=== PATIENT | female | born 1950 | race Caucasian/White ===

== ENCOUNTER 2017-06-05 06:45 | Day surgery (SDC) | payer MEDICARE, OTHER ==
[~2017-06-05] VITALS: Ht 162.6 cm; Wt 77.1 kg
[~2017-06-05 06:45] MED LIST: ALEVE220 MG PO; ASPIR 8181 MG PO; BETIMOL5 M1 OPTH; CALCIUM 1,0001 EACH PO; CRANBERRY300 MG PO; IBUPROFEN800 MG PO; ICAPS TABLET1 EACH PO; LIDOCAINE HCL100 ML; LIPITOR20 MG PO; LUMIGAN2.5 M1 OPTH; NORCO 5-325 TA1 EACH PO; PREDNISONE20 MG PO; PROVENTIL HFA6.7 GM INH; VITAMIN C500 M4 PO
--- NOTE | 2017-06-05 09:29 | NUR ---
PT WAS ALERT AND ORIENTED. SHE SEEMED PREPARED, WAITING FOR DR TO COME IN. VERY PLEASANT, HAD NO QUESTIONS, PT DECLINED PRAYER AT THIS TIME. WILL FOLLOW NEEDED
--- NOTE | 2017-06-05 12:40 | NUR ---
06/05/17 1240 Luz Holcomb 1231 PT ARRIVED IN PACU WITH ORAL AIRWAY IN PLACE. 1233 ORAL AIRWAY REMOVED. PT SLEEPY WITH NO C/O'S. PIERSON CATHETER PRESENT WITH BRIGHT YELLOW URINE.
--- NOTE | 2017-06-05 13:46 | NUR ---
PT RETURNS TO DEPT QUITE SOMNOLENT. PT ABLE TO RATE PAIN; HOWEVER, WORDS ARE SLURRED AT THIS TIME. WHEN STIMULATED, PT REPORTS "I NEED TO GET UP". PT IS REASSURED W/RN VOICE. ICED WATER IS @ BS. BED RAILS ARE UP X 2. CALL LIGHT W/IN REACH. ATTEMPT MADE TO LOCATE PATIENT'S FAMILY.
--- NOTE | 2017-06-05 14:04 | NUR ---
PHONE CALL TO DAUGHTER TO REPORT HER MOM IS BACK IN DAY SURGERY. DAUGHTER ASKS IF MOTHER IS READY TO GO HOME. PLAN OF CARE RELAYED AND SHE VERBALIZES UNDERSTANDING.
--- NOTE | 2017-06-05 14:10 | NUR ---
PT AWAKE AND INSISTING ON GETTING UP TO GO TO THE BATHROOM. PT REQ CATHETER BE REMOVED.
--- NOTE | 2017-06-05 14:17 | NUR ---
10ML NS DEFLATED OUT OF BALLOON AND PIERSON CATHETER IS REMOVED. 200 ML BRIGHT YELLOW URINE NOTED TO OVERNIGHT PIERSON CATHETER BAG. PATIENT ATTEMPTS TO GET OUT OF BED PREMATURELY ON SEVERAL OCCASIONS. PATIENT FOLLOWS INSTRUCTIONS FROM RN. PT AMBULATES TO THE BATHROOM QUICKLY WITH ASSISTANCE FROM RN. PT REQUESTS TO BE LEFT ALONE IN THE BATHROOM AND IS INSTRUCTED ON HOW TO USE THE CALL LIGHT. SHE VERBALIZES UNDERSTANDING.
--- NOTE | 2017-06-05 14:34 | NUR ---
PT UNABLE TO VOID. SMALL DROPLETS OF BLOOD NOTED TO URINE HAT. MAUREEN PAD AND MESH PANTIES PLACED. PT MOANING AND REPEATING "MY STOMACH HURTS REALLY BAD". PT AMBULATES BACK TO BED W/ASSIST. SCDS IN PLACE. LUCAS HUGGER ON WARM. PRN PULLED FOR PAIN. WHEN UNSTIMULATED, PT FALLS QUICKLY TO SLEEP. WILL CONTINUE TO MONITOR REGARDING PAIN MEDICINE. PT OXYGEN SATURATION REMAINS 98% ON 2L VIA NC. OXYGEN REDUCED TO 1L VIA NC.
--- NOTE | 2017-06-05 14:55 | NUR ---
PT CONTINUES TO WRITHE IN PAIN. PT CONTINUES TO ASK FOR PAIN MEDICINE. CALL TO HAMMERER TO ASSESS PATIENT'S BASELINE ANXIETY. HAMMERER REPORTS PATIENT SEEMED TO BE ANXIOUS PREOP. HAMMERER DOES REPORT BRADYCARDIA UPON ARRIVAL TO OR WELL. WILL CRACKERS GIVEN AND PT TOLERATES THOSE WELL. PRN GIVEN FOR PAIN.
--- NOTE | 2017-06-05 15:22 | NUR ---
PT UP TO BR W/RN ASSIST. PT VOIDS 25 ML BRIGHT YELLOW, URINE AND REPORTS "MY STOMACH HURTS REALLY BAD". PT AMBULATES BACK TO BED AND POSITIONS HERSELF ON HER RIGHT SIDE. CONTINUOUS PULSE OXIMETER CONNECTED AND OXYGEN SATURATION IS 98% ON RA. OXYGEN IS DC @ THIS TIME. LUCAS HUGGER ON WARM. MORE ICED WATER GIVEN. PT RESTS QUIETLY WHEN LEFT UNSTIMULATED.
--- NOTE | 2017-06-05 15:32 | NUR ---
PT WRITHING IN PAIN IN BED. RN @ BS CONTINUOUSLY D/T ALARM OF CONTINUOUS PULSE OXIMETER NOT GETTING A GOOD READING. PT REPORTS "IT'S HOT IN HERE". LUCAS HUGGER TURNED OFF. PRN GIVEN. PULSE IS 50 AND OXYGEN SATURATION IS 97% PT APPEARS TO BE COMFORTABLE. SHE IS RESTING QUIETLY. RR EVEN AND UNLABORED.
--- NOTE | 2017-06-05 15:41 | NUR ---
PT DESATURATES TO 86% ON ROOM AIR WHILE SLEEPING. OXYGEN INCREASED TO 1L VIA NC AND IMMEDIATELY INCREASES TO 91%
--- NOTE | 2017-06-05 16:24 | NUR ---
PT RESTING QUIETLY W/RR EVEN AND UNLABORED. PT WAKES EASILY TO RN VOICE AND REPORTS FEELING "MUCH BETTER". PATIENT RATES PAIN "ZERO". OXYGEN SATURATION 98% ON 1L VIA NC. OXYGEN TURNED OFF @ THIS TIME. PT DENIES ADD'L NEEDS @ THIS TIME.
--- NOTE | 2017-06-05 17:00 | NUR ---
PT UP TO BR W/RN STANDBY. PT AMBULATES WELL AND VOIDS 100 ML BRIGHT YELLOW, URINE. PT REQ DC HOME. DAUGHTER PHONED AND WILL COME TO PROVIDE PT HER RIDE HOME. PT DRESSING SELF.
--- NOTE | 2017-06-05 17:18 | NUR ---
DC INSTRUCTIONS GIVEN AND PT VERBALIZES UNDERSTANDING. PT TRANSFERS HERSELF TO THE AND IS DC HOME.
--- NOTE | 2017-06-07 09:41 | OR ---
[facility] [address] [place], [place] [address] Signed DATE OF OPERATION: 06/05/2017 SURGEON: Elizabeth Brar MD MOTION PICTURE CAMERAMAN: Kenn Stokes MD. PREOPERATIVE DIAGNOSIS: Recurrent cervical dysplasia, cervical stenosis. POSTOPERATIVE DIAGNOSIS: Recurrent cervical dysplasia, cervical stenosis. PROCEDURES: Laparoscopically assisted total vaginal hysterectomy, bilateral salpingectomy, and cystoscopy. ANESTHESIA: General ET. ESTIMATED BLOOD LOSS: 100 mL. DRAINS: Reyes catheter. INDICATIONS AND FINDINGS: The patient is a 66-year-old female, 2, para 2, who has a long history of cervical dysplasia and has undergone 2 prior LEEPs as well as a cone biopsy. 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 Unfortunately because of her prior procedure, she has almost no visible cervix and also has severe cervical stenosis. Options were discussed and she wished to proceed with hysterectomy. At the time of surgery, her cervix was very tiny, visible within the vagina. The os was very stenotic. The uterus was otherwise small and the ovaries were normal. The tubes had evidence of prior tubal ligation. Perforation of the cervix did occur during dilation and placement of the VCare. DESCRIPTION OF PROCEDURE: The patient was prepped and draped in the dorsal lithotomy position. A weighted speculum was placed and the anterior lip of the cervix was visualized with quite a bit Electronically Signed By: ELIZABETH BRAR MD 06/07/17 0941 PATIENT NAME: ROMERO ROBERTO OPERATIVE REPORT DATE OF : 50 REPORT #: [id number] PHYSICIAN: ELIZABETH BRAR MD PCP: NO PRIMARY CARE PHYSICIAN REPORT IS CONFIDENTIAL AND NOT TO BE RELEASED WITHOUT AUTHORIZATION [facility] [address] [place], [place] [address] Signed of difficulty and grasped with a single-tooth tenaculum. The os was pinpoint. The os was then dilated, but it was immediately apparent that perforation had occurred. The VCare was then placed and the balloon inflated and the tenaculum and speculum were removed and the cup was fitted over the cervix and the locking cap was fitted into place. Attention was then directed above after changing gloves. The infraumbilical area was then injected with 0.5% Marcaine plain. An incision was made with a knife and then each layer was serially elevated and incised until the fascia was opened and identified. There was some bleeding on the muscle, which was controlled by cautery. The peritoneum was opened bluntly. The Thiago cannula was then placed and the balloon inflated within the abdomen. The Thiago was also tied into place. The laparoscope was placed and this confirmed proper positioning of the instruments. The abdomen was inflated with CO2 gas. The lateral ports were placed lateral and slightly inferior to the umbilical incisions. These areas were transilluminated, injected with the Marcaine. Incisions made with a knife and the trocars placed under direct vision. The left lower quadrant site was a 5 mm port with a balloon inflated within the abdomen. The right side was the Veress needle placement followed by the expanding port. Inspection of the pelvis revealed that the V-Care balloon was in the lower aspect of the right broad ligament. There was a small hematoma present. The decision was made to try to replace the balloon into the proper location. Attention was directed down below while Dr. Stokes watched from above and the VCare was removed. An attempt was made to place it into the uterus, but it would continue to go into the right broad ligament. Decision was made to just leave all of the instruments out of the vagina other than a sponge stick and convert the case to a laparoscopically assisted hysterectomy. Following with this, gloves were changed again and the LigaSure [place] device was used to remove the patient's left tube and then serially coagulate and divide the utero-ovarian ligament and the round ligament and to take down the peritoneum anteriorly, allowing for a partial bladder flap. The peritoneum was taken down posteriorly as well. Attention was then directed to the patient's right side and the same procedure was done with removal of the tube and then serial cautery and incision of the utero-ovarian pedicle in the round ligament. Again, the anterior leaf of the peritoneum was taken down as was the posterior leaf. The uterine vessels were skeletonized and coagulated multiple times and then divided. This was also done on the patient's left side. At that point, it was felt that the safest option would be to go down below, as the end of the cervix could not really be identified from above. Following this, the gas was allowed to escape from the abdomen and the abdomen was covered with sterile drapes and attention was directed down below again. The sponge stick was removed and a weighted speculum was placed and the anterior lip of the cervix was visualized with difficulty and again grasped with a single-tooth tenaculum. The midportion of the cervix was also grasped with a single-tooth tenaculum. The posterior cul-de-sac was opened sharply with the George scissors. The [place]ck speculum was then placed into the posterior cul-de-sac. The uterosacral ligaments were grasped on each Electronically Signed By: ELIZABETH BRAR MD 06/07/17 0941 PATIENT NAME: ROMERO ROBERTO OPERATIVE REPORT DATE OF : 50 REPORT #: [id number] PHYSICIAN: ELIZABETH BRAR MD PCP: NO PRIMARY CARE PHYSICIAN REPORT IS CONFIDENTIAL AND NOT TO BE RELEASED WITHOUT AUTHORIZATION [facility] [address] [place], [place] [address] Signed side and divided with the George scissors and suture ligated with 0 Vicryl. The vaginal mucosa was then circumscribed with the knife and sharp dissection was used to take the vaginal mucosa off the cervix and the anterior cul-de-sac entered at that time. The clamp was then used to take down the cardinal ligament areas on each side with each pedicle divided with the George scissors and suture ligated with 0 Vicryl. At this point, the specimen was excised. Bleeding points in the lateral cuff areas were controlled with figure-of-8 sutures of 0 Vicryl. This was done bilaterally. The cuff otherwise appeared to be hemostatic. Because of the difficulty with the case and the poor anatomy, the decision was made to proceed with cystoscopy at this point. The Reyes catheter was removed and the cystoscope was placed. The patient had received IV fluorescein. The bladder was completely evaluated. There was no evidence of any injury. Clear nonfluorescein urine was seen to freely egress from both of the ureteral orifices. The cystoscopy was completed at that point, and the cystoscope removed and the bladder drained. The Reyes catheter was replaced. A glove filled with a wet lap tape was then placed in the vagina to allow the pneumoperitoneum above to re-create. Gloves were changed again and attention was directed to the abdomen. The abdomen was copiously irrigated and inspected. There was some bleeding from just above the patient's left angle. This was eventually controlled using the spatula tip cautery, but the LigaSure device was also used. An Endoloop of 0 PDS was also placed around this pedicle. At that point, good hemostasis was noted. The pressure was turned down and it still appeared hemostatic. Following this, the Endo Stitch was used to close the vaginal cuff. This was taken from the patient's right uterosacral ligament incorporating the peritoneum and the vaginal mucosa both posteriorly and anteriorly. This was run from the right to left uterosacral ligament and then back to the center. Following this, the pelvis was again irrigated and inspected and found to be hemostatic. Because of the prior difficulty, however, Evicel was used on the vaginal cuff to aid in hemostasis. The instruments were removed from the abdomen after allowing as much CO2 as possible to escape. The fascial incision of the umbilicus was closed with a running suture of 0 Vicryl. The skin incisions were closed with subcuticular sutures of 3-0 Vicryl Rapide. The vaginal pack was removed at the end of the surgery. The patient tolerated the procedure well. All sponge and needle counts were correct. Elizabeth Brar MD PJW/MODL /[id number] Electronically Signed By: ELIZABETH BRAR MD 06/07/17 0941 PATIENT NAME: PARDEEP OPERATIVE REPORT DATE OF : 50 REPORT #: [id number] PHYSICIAN: ELIZABETH BRAR MD PCP: NO PRIMARY CARE PHYSICIAN REPORT IS CONFIDENTIAL AND NOT TO BE RELEASED WITHOUT AUTHORIZATION [address] [address] Signed cc: Dr. Rc Stokes MD Copies: KENN STOKES MD ~ Electronically Signed By: ELIZABETH BRAR MD 06/07/17 0941 PATIENT NAME: ROMERO ROBERTO OPERATIVE REPORT DATE OF : 50 REPORT #: [id number] PHYSICIAN: ELIZABETH BRAR MD PCP: NO PRIMARY CARE PHYSICIAN REPORT IS CONFIDENTIAL AND NOT TO BE RELEASED WITHOUT AUTHORIZATION
== END 2017-06-05 17:19 | disposition home or self-care (01) ==
LOC: DS 06:45
PROVIDERS: Obstetrics & Gynecology
PROC: 0UT9FZZ Resection of Uterus, Via Natural or Artificial Opening With Percutaneous Endoscopic Assistance (ICD-10-PCS; principal; 2017-06-05 10:45)
PROC: 0UT7FZZ Resection of Bilateral Fallopian Tubes, Via Natural or Artificial Opening With Percutaneous Endoscopic Assistance (ICD-10-PCS; 2017-06-05 10:45)
DX: N87.0 Mild cervical dysplasia (principal); N72 Inflammatory disease of cervix uteri; N88.2 Stricture and stenosis of cervix uteri; D49.59 Neoplasm of unspecified behavior of other genitourinary organ; F17.210 Nicotine dependence, cigarettes, uncomplicated; E66.9 Obesity, unspecified; E78.00 Pure hypercholesterolemia, unspecified; H40.9 Unspecified glaucoma; I10 Essential (primary) hypertension; Z98.890 Other specified postprocedural states; F17.200 Nicotine dependence, unspecified, uncomplicated; Z79.82 Long term (current) use of aspirin; Z79.899 Other long term (current) drug therapy; Z68.29 Body mass index [BMI] 29.0-29.9, adult
CPT/HCPCS: 00944; 88307; J0131; J0330; J0694; J1100; J1644; J1885; J2250; J2270; J2405; J2550; J2704; J2765; J3010; J3475; J7120

== ENCOUNTER 2019-09-04 15:35 | Emergency (ER) | payer MEDICARE, OTHER ==
[~2019-09-04] VITALS: Ht 162.6 cm; Wt 73.5 kg
== END 2019-09-04 16:16 | disposition left against medical advice (07) ==
LOC: ED 15:35
DX: R10.9 Unspecified abdominal pain (principal); Z87.891 Personal history of nicotine dependence; Z79.899 Other long term (current) drug therapy
CPT/HCPCS: 80053; 81001; 83690; 85025; 99284

== ENCOUNTER 2024-11-16 15:45 | Emergency (ER) | payer MEDICARE, OTHER ==
[~2024-11-16] VITALS: Ht 162.6 cm; Wt 72.0 kg
[2024-11-16 16:45] LABS: BASOPHILS 0.5 % (0.1-1.2); EOSINOPHILS 1.1 % (0.7-5.8); LYMPHOCYTES 28.8 % (19.3-51.7); MCH 31.8 PG (25.6-32.2); MCHC 33.6 g/dL (32.2-35.5); MCV 94.8 fL (79.4-94.8); MONOCYTES 9.2 % (4.7-12.5); NEUTROPHILS 60.2 % (34.0-71.1); RBC 4.78 M/uL (3.93-5.22)
[2024-11-16 17:09] LABS: ALT (SGPT) 17.0 U/L (14-59); AST (SGOT) 17.0 U/L (15-37); GLOMERULAR FILTRATION RATE,EST 78.0 mL/min (>60); PROTEIN, TOTAL 7.1 g/dL (6.4-8.2); TSH, 3RD GENERATION 0.791 uIU/mL (0.358-3.740); UREA NITROGEN 13.0 mg/dL (7-18)
[2024-11-16] MEDS ORDERED: ELIQUIS5 MG PO (17:57)
[2024-11-16] MEDS ORDERED: DILTIAZEM 24HR120 MG PO (17:57)
[2024-11-16 18:27] VITALS: BP 142/93
--- NOTE | 2024-11-17 22:07 | EKG ---
[facility] [address] [facility] [place] [address] Signed Atrial fibrillation with rapid ventricular response ST \T\ T wave abnormality, consider inferolateral ischemia Abnormal ECG When compared with ECG of 27-MAY-2017 15:59, Atrial fibrillation has replaced Sinus rhythm Vent. rate has increased BY [address] now depressed in Anterior leads T wave inversion now evident in Inferior leads T wave inversion now evident in Lateral leads Confirmed by Kofi Ellis MD () on 11/17/2024 10:07:25 PM Electronically Signed By: KOFI ELLIS MD 11/17/24 2207 PATIENT NAME: ROBERTO Electrocardiogram DATE OF : 50 PHYSICIAN: KOFI ELLIS MD REPORT #: [id number] REPORT IS CONFIDENTIAL AND NOT TO BE RELEASED WITHOUT AUTHORIZATION
== END 2024-11-16 18:27 | disposition home or self-care (01) ==
LOC: ED 15:45
PROVIDERS: Emergency Medicine
DX: I48.91 Unspecified atrial fibrillation (principal); J02.9 Acute pharyngitis, unspecified; H40.9 Unspecified glaucoma; Z87.891 Personal history of nicotine dependence; Z79.899 Other long term (current) drug therapy
CPT/HCPCS: 36415; 80053; 80307; 83735; 84439; 84443; 84484; 85025; 93005; 93010; 99285